=== PATIENT | male | born 1990 | race Caucasian/White ===

== ENCOUNTER 2017-05-17 11:18 | Emergency (ER) | payer MEDICAID, SELFPAY ==
[2017-05-17 11:19] VITALS: BP 140/90; PULSE 113; RESP 12; TEMP 36.4; BMI 25.0
[2017-05-17 11:35] VITALS: PULSE 102
--- NOTE | 2017-05-17 11:36 | ED.RN ---
PT DECLINES MAKING POLICE REPORT
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
[2017-05-17] MEDS: Diphth,Pertuss(Acell),Tet Vac 0.5 ML Vial IM (13:13)
[2017-05-17] MEDS: Naproxen 500 MG Tablet PO (13:14)
[2017-05-17] MEDS: Amox/Clavulanate 875 MG Tablet PO (13:14)
[2017-05-17 13:17] VITALS: PULSE 80; RESP 16; O2SAT 99
== END 2017-05-17 13:17 | disposition home or self-care (01) ==
LOC: ED 12:02
PROVIDERS: Emergency Provider Emergency Medicine
DX: S61.353A Open bite of left middle finger with damage to nail, initial encounter (principal); S60.132A Contusion of left middle finger with damage to nail, initial encounter; Z23 Encounter for immunization; Z72.0 Tobacco use; W50.3XXA Accidental bite by another person, initial encounter; Y93.89 Activity, other specified; Y92.89 Other specified places as the place of occurrence of the external cause; Y99.8 Other external cause status
CPT/HCPCS: 11740; 11730; 73140; 90471; 90715; 99283

== ENCOUNTER 2017-05-26 20:21 | Emergency (ER) | payer MEDICAID, SELFPAY ==
[2017-05-26 20:22] VITALS: BP 135/81; PULSE 119; RESP 15; TEMP 37.1; BMI 25.1
--- NOTE | 2017-05-26 20:43 | ED.DCSUM_ITS ---
- ER Visit Summary Date of Service: 05/26/17 Chief Complaint: Genital rash, dysuria History of Present Illness: The patient is a 26 M with no significant medical history presents to the emergency department with rash on his genitals. Patient states that he has had intercourse with a new partner twice over the past 3 weeks. He states that he developed a rash mostly in the pubic area but it is since spread to his penis. He describes some difficulty urinating because of it. He denies any discharge. He denies any back pain. The patient is currently on antibiotics for a finger infection. Physical Examination: Vital signs reviewed General: Well-nourished, well-developed Head: Normocephalic, atraumatic Eyes: Pupils equal and reactive, extraocular muscles intact Neck, supple, no lymphadenopathy Heart: Regular rate and rhythm Respiratory: No distress, clear bilaterally Abdomen: Soft, nontender, nondistended, no peritoneal signs Back: Nontender Exam: Patient does have a folliculitis pubic area. He does however have vesicles on the glans. There is no drainage. Testicles are normal. Extremities: Nontender, no edema, no cords Skin: Normal color no rash Neuro: Alert and oriented, no focal or lateralizing deficits Test Results: [] Emergency Department Course and Treatment: The patient does have evidence of vesicular eruption on his penis. My concern is for genital herpes. I did obtain a viral culture. The patient was also treated with Rocephin and azithromycin. He does have some with urination, but I do not feel that this represents an acute urinary tract infection. He has no flank pain. The patient will be started on Valtrex. He will be discharged home. Treatment Plan: [] Disposition: Charge Impression: 1. Genital herpes This note was generated with [employer] software. It may contain incorrect words, spelling, and punctuation that were not noted in review of the chart prior to signing ED Disposition - Plan for ED Patient: Disposition: Home or Assisted Living Chief Complaint: Complaint Instructions: ED STD Male Treated Prescriptions: Valacyclovir HCl [Valtrex] 1,000 mg PO TID #21 tab Referrals: Care Physician,No Primary [Primary Care Provider] -
[2017-05-26 20:55] LABS: Red Blood Cells-Urine 0 SEEN /hpf (0-5)
[2017-05-26 20:57] LABS: Color, Urine Yellow (Yellow); Glucose, Dipstick Normal (Normal); Ketone-Dipstick 5 mg/dl (Negative); Leukocyte Esterase-Dipstick 100 /ul (Negative); Nitrite-Dipstick Negative (Negative); Occult Blood-Urine Negative /ul (Negative); Protein-Dipstick 30 mg/dl (Negative); Urine Bilirubin Dipstick Negative (Negative); Urine Clarity Clear (Clear); Urine Urobilinogen 4 mg/dl (Normal)
[2017-05-26] MEDS: Acyclovir 800 MG Tablet PO (20:58)
[2017-05-26] MEDS: Azithromycin 250 MG Tablet 500 MG PO (20:58)
[2017-05-26] MEDS: Ceftriaxone 500 MG Vial 250 MG IM (20:59)
[2017-05-26 21:04] LABS: Bacteria 1+ /hpf (None Seen); Mucous, Urine 1+ /hpf (<or=2+); Squamous Epithelial Cells - UA 0-5 SEEN /hpf (0-5); White Blood Cells 5-10 SEEN /hpf (0-5)
[2017-05-26 22:28] VITALS: BP 131/68; PULSE 80; RESP 16; O2SAT 96
[2017-05-26 22:53] LABS: Chlamydia Trachomatis by PCR Negative (Negative); Neisserai gonorrhoeae by PCR Negative (Negative); Probe Check PASS; Sample Adequacy Control PASS; Specimen Processing Control PASS
== END 2017-05-26 22:29 | disposition home or self-care (01) ==
LOC: ED 20:47
PROVIDERS: Emergency Provider Emergency Medicine
DX: A60.01 Herpesviral infection of penis (principal); Z79.891 Long term (current) use of opiate analgesic; Z79.2 Long term (current) use of antibiotics
CPT/HCPCS: 81001; 87255; 87491; 87591; 96372; 99283

== ENCOUNTER → 2017-06-19 07:15 | Outpatient (CLI) | payer MEDICAID, SELFPAY ==
[2017-05-23 11:38] VITALS: BP 135/89
[2017-05-23 11:44] VITALS: BMI 25.0
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
== END ==
PROVIDERS: Visit Provider Surgery
DX: Z53.9 Procedure and treatment not carried out, unspecified reason (principal)
CPT/HCPCS: J0295

== ENCOUNTER 2017-08-07 12:23 | Emergency (ER) | payer MEDICAID, SELFPAY ==
[2017-08-07 12:24] VITALS: BP 148/102; PULSE 102; RESP 18; TEMP 36.3; O2SAT 99; BMI 25.8
--- NOTE | 2017-08-07 12:45 | ED.VISSUMM ---
- ER Visit Summary Date of Service: 08/07/17 Chief Complaint: Left groin lump and penile/scrotal lesions History of Present Illness: The patient is a 27 M who presents because of a lump left groin that he noted yesterday. He states the lump is painful. He denies nausea, vomiting diarrhea. He denies dysuria, frequency, urgency or hematuria. He has no history of being in a hot tub. He was checked for STD 1 month ago and all tests including herpes was negative. He states he has been scratching the lesions. He denies any fever, chills night sweats. Denies a traumatic fever, murmur, SPE or being immune suppressed. Please read written note for complete detail Physical Examination: Patient appears uncomfortable. Blood pressure elevated 140/102. Heart rate is 102. HEENT exam is unremarkable. Heart is regular. There is no rest or distress. Abdomen soft nontender. He has no inguinal lymphadenopathy. He is circumcised. No penile lesions or discharge noted. Testes descended bilaterally no testicular or epididymal tenderness. He does have a small reducible left inguinal hernia. He does have evidence of folliculitis as well as scrotal lesions with excoriation and mild infection. There is also evidence of rash on inner proximal right and left thigh. Test Results: None are indicated Emergency Department Course and Treatment: Keep appointment with PCP for referral to general surgeon and dicloxacillin for strep and staph coverage since there is no history of being in a hot tub. Treatment Plan: Outpatient follow-up and antibiotics Disposition: Discharged home Impression: 1. Reducible left inguinal hernia 2. Folliculitis with areas of excoriation and mild cellulitis This note was generated with [employer] dictation software. It may contain incorrect words, spelling, and punctuation that were not noted in review of the chart prior to signing ED Disposition - Plan for ED Patient: Disposition: Home or Assisted Living Chief Complaint: Male Pain/Injury Instructions: ED Hernia Inguinal, ED Folliculitis Prescriptions: Dicloxacillin Sodium 500 mg PO 4X/DAY #30 cap Referrals: Care Physician,No Primary [Primary Care Provider] -
--- NOTE | 2017-08-07 12:49 | ED.DCSUM_ITS ---
- ER Visit Summary Date of Service: 08/07/17 Chief Complaint: [] History of Present Illness: The patient is a 27 M [] Physical Examination: [] Test Results: [] Emergency Department Course and Treatment: [] Treatment Plan: [] Disposition: [] Impression: [] This note was generated with [employer] dictation software. It may contain incorrect words, spelling, and punctuation that were not noted in review of the chart prior to signing ED Disposition - Plan for ED Patient: Disposition: Home or Assisted Living Chief Complaint: Male Pain/Injury Instructions: ED Folliculitis, ED Hernia Inguinal Prescriptions: Dicloxacillin Sodium 500 mg PO 4X/DAY #30 cap Referrals: Care Physician,No Primary [Primary Care Provider] - Additional Instructions: Keep appointment with your doctors nurse practitioner scheduled for tomorrow. You may need a referral to a general surgeon.
[2017-08-07] MEDS: Naproxen 250 MG Tablet 500 MG PO (12:58)
[2017-08-07 13:00] VITALS: PULSE 95; RESP 16; O2SAT 98
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
== END 2017-08-07 13:01 | disposition home or self-care (01) ==
LOC: ED 12:52
PROVIDERS: Emergency Provider Emergency Medicine
DX: K40.90 Unilateral inguinal hernia, without obstruction or gangrene, not specified as recurrent (principal); L73.9 Follicular disorder, unspecified; N49.2 Inflammatory disorders of scrotum
CPT/HCPCS: 99283

== ENCOUNTER 2018-01-10 11:44 | Emergency (ER) | payer MEDICAID, SELFPAY ==
[2018-01-10 11:45] VITALS: BP 124/89; PULSE 99; RESP 18; TEMP 36.6; O2SAT 98; BMI 26.6
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
--- NOTE | 2018-01-10 12:10 | DCINST.ED_ITS ---
ED Disposition - Plan for ED Patient: Disposition: Home or Assisted Living Chief Complaint: Other, Pain/Inj Instructions: ED Chronic Pain Management Referrals: Arielle Lowry MD [STAFF PHYSICIAN] - As soon as possible Additional Instructions: Continue anti-inflammatory pain medications. Call and follow-up with Dr. Lowry the spray painting machine operator
== END 2018-01-10 12:23 | disposition home or self-care (01) ==
PROVIDERS: Emergency Provider Emergency Medicine; Family Provider Internal Medicine; PCP Internal Medicine
DX: M54.2 Cervicalgia (principal); G89.29 Other chronic pain; Z87.891 Personal history of nicotine dependence
CPT/HCPCS: 99282

== ENCOUNTER 2018-05-12 13:25 | Emergency (ER) | payer MEDICAID, SELFPAY ==
[2018-05-12 13:25] VITALS: BMI 25.0
[2018-05-12 13:26] VITALS: BP 149/96; PULSE 109; RESP 20; TEMP 37; O2SAT 89; O2SAT 93; BMI 30.6
--- NOTE | 2018-05-12 13:29 | RAD_ITS ---
STUDY: X-RAY CHEST REASON FOR EXAM: Male, 27 years old. Cough. TECHNIQUE: Single AP portable view of the chest. COMPARISON: None. FINDINGS: The lungs are clear and expanded. There is no demonstrated pleural abnormality. Normal size heart. Normal mediastinum and nenita. Normal visualized pulmonary arteries. Normal visualized aortic arch and descending thoracic aorta. Normal visualized thoracic spine. Normal visualized ribs, clavicles, and shoulders. There is no demonstrated abnormality of the visualized soft tissue structures of the upper abdomen. RAD/Chest 1 View (Portable) IMPRESSION: Normal x-ray examination of the chest. Electronically Signed: Tristan Wood DO at 14:32 EST Tel [phone], Service support ,
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
[2018-05-12] MEDS: Lidocaine/Epi/Tetracaine 50 ML 1 APPLIC TOPICAL (13:45)
[2018-05-12] MEDS: Ondansetron 4 MG/2 ML Vial IV (15:04)
[2018-05-12] MEDS: Acetaminophen 500 MG Tablet 1000 MG PO (15:18)
[2018-05-12 15:21] VITALS: BP 115/71; PULSE 82; RESP 16; O2SAT 93
[2018-05-12 16:30] VITALS: RESP 18
--- NOTE | 2018-05-12 16:34 | ED.RN ---
PT REFUSED TO GIVE A URINE SAMPLE OR ALLOW MONITOR TO BE PLACED.
== END 2018-05-12 16:38 | disposition home or self-care (01) ==
PROVIDERS: Emergency Provider Emergency Medicine
DX: T40.601A Poisoning by unspecified narcotics, accidental (unintentional), initial encounter (principal); S01.81XA Laceration without foreign body of other part of head, initial encounter; Z72.0 Tobacco use; W26.9XXA Contact with unspecified sharp object(s), initial encounter; Y93.89 Activity, other specified; Y92.89 Other specified places as the place of occurrence of the external cause; Y99.8 Other external cause status
CPT/HCPCS: 12011; 71045; 96374; 99284; J7030; J2405

== ENCOUNTER → 2018-08-05 | Outpatient (CLI) | payer MEDICAID, SELFPAY ==
--- NOTE | 2018-08-05 12:45 | SEP_PTH ---
PATIENT: JORI FERREIRA [facility][id number] AGE/SX: 28/M ROOM: RE08/05/[address]: Dr. Chip Hernández MD : 1990 BED: DIS: 08/05/2018 SPEC #: [id number] RECD: 08/05/18 15:09 STATUS: SHANIKA REBreann #: [id number] CINDY: 08/05/18 12:[address]: Chip Hernández DEPT: SURGICAL PATHOLOGY RECD BY: Eloy Maxwell ENTERED: 08/06/18 11:09 SP TYPE: SEPTUM OTHR DR: No Primary Care Phys [facility] Tissues: A - Nasal septum, NOS B - Ethmoid sinus, NOS Procedures: Decalcification bone/plaque Surgery Specimen Level III HEADER OPERATION: Septoplasty, turbinate resection with submucosal approach PRE-OP DIAGNOSIS: Nasal congestion, hypertrophy of nasal turbinates, deviated nasal septum TISSUE SUBMITTED: A. Septum, B. Turbinate contents MICROSCOPIC DIAGNOSIS A. Septum: Fragments of cartilage and bone, clinically deviated nasal septum. B. Turbinate contents: No tissue is identified. See comment. ISABELL:arminda 08/09/18 COMMENT B. Clinical correlation is necessary. MICROSCOPIC DESCRIPTION Slides are reviewed. GROSS DESCRIPTION A - Received in fixative is one container labeled with the patient's name and designated septum. The specimen consists of multiple fragments of cartilage and bone that in aggregate measure 3 x 2.5 x 0.3 cm. The entire specimen is submitted in one cassette after decalcification. B - Received in fixative is one container labeled with the patient's name and designated turbinate contents. The entire specimen consists of bloody fluid. No obvious tissue is identified. The specimen is submitted for cell block preparation. / ISABELL:arminda 08/06/18 TC: 5 CPT: 38248 x2, 75204
== END | disposition home or self-care (01) ==
LOC: LABSPEC 15:18
PROVIDERS: Referring Provider Otolaryngology; Visit Provider Otolaryngology
DX: R09.81 Nasal congestion (principal); J34.3 Hypertrophy of nasal turbinates; J34.2 Deviated nasal septum
CPT/HCPCS: 88304; 88305; 88311

== ENCOUNTER 2018-10-16 18:07 | Emergency (ER) | payer MEDICAID, SELFPAY ==
[2018-10-16 18:07] VITALS: BP 136/91; PULSE 80; RESP 16; TEMP 36.6; O2SAT 99; BMI 27.1
[2018-10-16] MEDS: Ondansetron 4 MG/2 ML Vial IV (18:39)
[2018-10-16] MEDS: 0.9% Normal Saline 1,000 ML 1000 ML IV (18:39)
--- NOTE | 2018-10-16 18:43 | ED.VIS.GEN ---
History of Present Illness Chief Complaint: Nausea/Vomiting Narrative: 28-year-old male with a history of IBS presents with what he does not address his typical IBS flareup. He states that he has had this happen multiple times in the past. He denies abdominal pain, just occasional cramps that resolved with vomiting. He has been unable to keep fluids down all day. He is concerned that he is becoming dehydrated. He denies fever, sick contacts, or unusual food intake. Current severity is moderate. Past Medical History - Allergies and Home Meds Allergies/Adverse Reactions: Allergies clindamycin Allergy (Verified 10/16/18 18:08) Unknown gentamicin [Gentamicin] Allergy (Verified 10/16/18 18:08) Unknown Primary Care Physician: Misty Mendoza MD [Primary Care Provider] - Prior records reviewed: Yes Past Medical History: - - IBS Smoking Status: Former smoker Review of Systems General: Denies: Chills, Fever, Sweats Eyes: Denies: Visual changes - bilaterally, Diplopia ENT: Denies: Rhinorrhea, Sore throat Cardiovascular: Denies: Chest pain, Palpitations Respiratory: Denies: Dyspnea, Cough, Dyspnea on exertion Gastrointestinal: Reports: Nausea, Vomiting. Denies: Abdominal pain, Diarrhea, Constipation, Melena, Hematochezia Genitourinary: Denies: Dysuria, Hematuria, Frequency Musculoskeletal: Denies: Back pain, Extremity Pain Skin: Denies: Rash, Wounds Neurological: Denies: Headache, Weakness, Numbness Physical Exam Vital Signs/Narrative: Vital Signs Temp Pulse Resp BP Pulse Ox 10/16/18 18:07 97.9 F 80 16 136/91 H 99 General: Well nourished, Well developed Head: Normocephalic, Atraumatic Eyes: Perrl, EOMI ENT: No rhinorrhea, Dry mucous membranes Neck: Supple, Nontender Cardiovascular: Regular rate, Regular rhythm, No murmurs Respiratory: No distress, CTA bilaterally, Chest nontender Abdomen: Soft, Nontender, Nondistended, Normal bowel sounds Back: Nontender, Normal Inspection Extremities: Nontender, No edema Skin: Normal color, No rash Neurological: Alert, Oriented x3, Cranial nerves II-XII grossly intact, Normal Strength, Normal Sensation Psychological: Normal affect, Normal Mood Diagnostic/Tx/Re-eval - Medical Decision Making Labs are fairly unremarkable. He does have ketones in his urine. He was given 2 L of fluid antiemetics and feels completely better. His abdomen is soft and nontender. He denies abdominal pain. We discussed abdominal imaging but he is certain that this is the same as his recurrent pain in the past. He feels well and would like to be discharged home. He is planning to follow-up with a power generation equipment repairer in [place]. He assures me that he will return here if he is any worse. He was discharged in stable condition. ED Disposition - Plan for ED Patient: Disposition: Home or Assisted Living Diagnosis: Nausea and vomiting, Dehydration Instructions: VOMITING AND DIARRHEA, Nonspecific (Adult) Prescriptions: proMETHazine suppository [Phenergan] 25 mg RECTAL Q6H PRN PRN #20 suppos. PRN Reason: Nausea Referrals: Misty Mendoza MD [Primary Care Provider] -
[2018-10-16 19:16] LABS: Bacteria 0 SEEN /hpf (None Seen); Mucous, Urine 0 SEEN /hpf (<or=2+)
[2018-10-16 19:24] LABS: AST(SGOT) 21 U/L (15-37); Alanine Aminotransfer ALT/SGPT 42 U/L (16-61); Albumin, Serum 4.9 g/dL (3.2-5.0); Alkaline Phosphatase 68 U/L (45-117); Anion Gap 9 (5-15); BUN 14 mg/dL (7-18); Bilirubin, Direct 0.21 mg/dL (0.00-0.30); Calcium,Total 10.2 mg/dL (8.5-10.1); Chloride 103 mmol/L (98-107); Creatinine, Serum 1.17 mg/dL (0.70-1.30); EST Glomerular Filtration Rate 79 mL/min (>60); Est Glom Filt Rate - Afr Amer 96 mL/min (>60); Estimated Creatinine Clearance 97.92 ml/min; Globulin 3.7 g/dL (2.2-4.2); Glucose 107 mg/dL (74-106); Lipase 117 U/L (73-393); Potassium 3.6 mmol/L (3.5-5.1); Protein, Total 8.6 g/dL (6.4-8.2); Sodium Level 137 mmol/L (136-145)
[2018-10-16 19:30] LABS: Color, Urine Yellow (Yellow); Glucose, Dipstick Normal (Normal); Leukocyte Esterase-Dipstick 25 /ul (Negative); Nitrite-Dipstick Negative (Negative); Occult Blood-Urine 10 /ul (Negative); Protein-Dipstick 30 mg/dl (Negative); Urine Bilirubin Dipstick Negative (Negative); Urine Clarity Sl. Cloudy (Clear); Urine Urobilinogen 1 mg/dl (Normal)
[2018-10-16 19:34] LABS: Ketone-Dipstick 150 mg/dl (Negative)
[2018-10-16 19:43] LABS: Red Blood Cells-Urine 0-5 SEEN /hpf (0-5); Squamous Epithelial Cells - UA 0-5 SEEN /hpf (0-5); White Blood Cells 0-5 SEEN /hpf (0-5)
[2018-10-16 20:13] LABS: Absolute Lymphocyte Count 1.14 X10^3/ul (0.83-4.51); Absolute Neutrophil Count 9.5 X10^3/uL (2.0-7.7); Basophil# 0.01 X10^3/uL; Basophil% 0.1 % (0-1); Hematocrit 49.5 % (40-54); Hemoglobin 17.6 g/dl (13.0-16.5); Lymphocyte # 1.14 X10^3/ul (4.0); Lymphocyte % 10.4 % (19-41); Mean Corp Hgb Conc 35.6 g/gl (32-36); Mean Corpuscular Hgb 31.1 pg (27.0-32.0); Mean Corpuscular Volume 87.5 fL (80-94); Mean Platelet Vol. 10.5 fl (6.2-12.0); Monocyte# 0.25 X10^3/uL; Monocyte% 2.3 % (0-10); Neutrophil # 9.54 X10^3/uL (2.7-7.7); Platelet Count 200 K/mm3 (150-450); RBC Distribution Width CV 12.1 % (11.6-14.6); RBC Distribution Width SD 38.8 fl (35.1-43.9); Red Blood Count 5.66 M/mm3 (4.6-6.2)
[2018-10-16 20:14] LABS: POSITIVE COUNT NO; POSITIVE DIFFERENTIAL NO; POSITIVE MORPHOLOGY NO
[2018-10-16] MEDS: 0.9% Normal Saline 1,000 ML 999 ML IV (20:38)
[2018-10-16] MEDS: proMETHazine 25 MG/ML Syringe 12.5 MG IV (20:38)
[2018-10-16 21:53] VITALS: BP 127/60; PULSE 96; RESP 18; O2SAT 97
== END 2018-10-16 21:53 | disposition home or self-care (01) ==
PROVIDERS: Emergency Provider Emergency Medicine; Family Provider Internal Medicine; PCP Internal Medicine
DX: E86.0 Dehydration (principal); R11.2 Nausea with vomiting, unspecified; Z87.891 Personal history of nicotine dependence
CPT/HCPCS: 80048; 80076; 81001; 83690; 85025; 96361; 96374; 96375; 99283; J7030; J2405

== ENCOUNTER 2018-12-27 14:11 | Emergency (ER) | payer MEDICAID, SELFPAY ==
[2018-12-27 14:13] VITALS: BP 137/96; PULSE 61; RESP 17; TEMP 36.6; O2SAT 99; BMI 27.0
--- NOTE | 2018-12-27 14:40 | CT_ITS ---
STUDY: CT ABDOMEN AND PELVIS WITH CONTRAST REASON FOR EXAM: Male, 28 years old. RADIATION DOSAGE (If Supplied By Facility): CTDIvol = ( 8.84 ) mGy, DLP = ( 448.18 ) mGycm TECHNIQUE: Transaxial images were obtained from the dome of the diaphragm to the symphysis pubis with oral contrast. 15ML Oral Gastrografin was administered. Sagittal and coronal images were reconstructed. Individualized dose optimization techniques were used for this CT. COMPARISON: 06/28/2016 FINDINGS: The visualized lung bases are unremarkable. The visualized portions of the heart are within normal limits. Normal liver. Normal gallbladder and extrahepatic biliary system. There is mild splenomegaly. Normal pancreas. Normal bilateral adrenal glands. Normal right kidney. Normal left kidney. No definite renal or ureteral stones are seen. There is no hydronephrosis on either side. Normal visualized stomach. Normal small intestine. Normal colon. The appendix is visualized and appears normal. Normal abdominal aorta. Normal inferior vena cava. Normal retroperitoneum. Normal urinary bladder. Normal abdominal wall. Normal osseous structures. CT/Abdomen/Pel W ORAL Cont Only IMPRESSION: Normal enhanced CT of the abdomen and pelvis. Electronically Signed: Roger Montgomery MD at 16:38 EDT , Service support ,
--- NOTE | 2018-12-27 14:44 | ED.VIS.GEN ---
History of Present Illness Chief Complaint: Abd Pain Informant: Patient Onset: Yesterday Current Severity: Moderate Maximum Severity: Moderate Narrative: Patient presents with left lower quadrant abdominal pain since yesterday. Has some congestion no chest pain or shortness of breath. He has no diarrhea constipation. He did have some constipation. Pain is mild to moderate. Achy. He tells me it has been diagnosed as irritable bowel syndrome in the past. He has not seen a GI doctor or followed up. He has not had a colonoscopy. Past Medical History - Allergies and Home Meds Allergies/Adverse Reactions: Allergies clindamycin Allergy (Verified 12/27/18 14:13) Unknown gentamicin [Gentamicin] Allergy (Verified 12/27/18 14:13) Unknown Primary Care Physician: Misty Mendoza MD [Primary Care Provider] - Past Medical History: - - Anxiety, possibility of irritable bowel syndrome Smoking Status: Former smoker Review of Systems All systems negative except as indicated General: Reports: Sweats. Denies: Chills Eyes: Denies: Visual changes - bilaterally Cardiovascular: Denies: Heart racing Respiratory: Denies: Dyspnea Gastrointestinal: Reports: Abdominal pain, Constipation Musculoskeletal: Denies: Back pain Neurological: Denies: Headache Physical Exam Vital Signs/Narrative: Vital Signs Temp Pulse Resp BP Pulse Ox 12/27/18 14:13 97.9 F 61 17 137/96 H 99 General: Well nourished, Well developed Eyes: Perrl ENT: Moist mucous membranes Cardiovascular: Regular rate Respiratory: No distress Abdomen: Soft, Tender - Left lower quadrant tenderness without any guarding or rebound Back: Nontender, Normal Inspection Skin: Normal color Psychological: Normal affect Diagnostic/Tx/Re-eval - Medical Decision Making Patient presents with chronic recurrent abdominal pain. He has a normal CT and work-up. He received antiemetics. I will discharge him with GI follow-up since this recurs often. ED Disposition - Plan for ED Patient: Disposition: Home or Assisted Living Diagnosis: Abdominal pain Instructions: ABDOMINAL PAIN, Unkown Cause, (Male) Prescriptions: Dicyclomine HCl [Bentyl] 20 mg PO TIDAC #20 cap Prescription Printed Ondansetron [Zofran Odt] 4 mg PO Q8H PRN PRN #10 tab PRN Reason: Nausea Prescription Printed Referrals: Rojas Valderrama MD [NON-STAFF] - 3-5 Days
[2018-12-27 15:01] LABS: Absolute Lymphocyte Count 1.01 X10^3/uL (0.83-4.51); Absolute Neutrophil Count 7.8 X10^3/uL (2.0-7.7); Basophil# 0.01 X10^3/uL; Basophil% 0.1 % (0-1); Eosinophil# 0.01 X10^3/uL; Eosinophils% 0.1 % (0-5); Hemoglobin 15.8 g/dL (13.0-16.5); Lymphocyte # 1.01 X10^3/ul (4.0); Lymphocyte % 10.9 % (19-41); Mean Corp Hgb Conc 34.3 g/dL (32-36); Mean Corpuscular Hgb 31.1 pg (27.0-32.0); Mean Corpuscular Volume 90.6 fL (80-94); Mean Platelet Vol. 9.7 fl (6.2-12.0); Monocyte# 0.43 X10^3/uL; Monocyte% 4.7 % (0-10); NRBC Flagged by Analyzer 0 % (0-5); Neutrophil # 7.75 X10^3/uL (2.7-7.7); Neutrophil % 83.9 % (47-70); Platelet Count 168 K/mm3 (150-450); RBC Distribution Width CV 11.7 % (11.6-14.6); RBC Distribution Width SD 38.8 fl (35.1-43.9); Red Blood Count 5.08 M/mm3 (4.6-6.2); White Blood Count 9.2 K/mm3 (4.4-11.0)
[2018-12-27] MEDS: Ondansetron 4 MG/2 ML Vial IV (15:05)
[2018-12-27] MEDS: 0.9% Normal Saline 1,000 ML 1000 ML IV (15:05)
[2018-12-27 15:21] LABS: ALB/GLOB Ratio 1.3 RATIO (0.9-2.4); AST(SGOT) 20 U/L (15-37); Alanine Aminotransfer ALT/SGPT 43 U/L (16-61); Albumin, Serum 4.2 g/dL (3.2-5.0); Alkaline Phosphatase 58 U/L (45-117); Anion Gap 1 (5-15); BUN 12 mg/dL (7-18); BUN/Creat Ratio 12.4 RATIO (10-20); Calcium,Total 9.3 mg/dL (8.5-10.1); Chloride 106 mmol/L (98-107); Creatinine, Serum 0.97 mg/dL (0.70-1.30); EST Glomerular Filtration Rate 99 mL/min (>60); Est Glom Filt Rate - Afr Amer 120 mL/min (>60); Estimated Creatinine Clearance 114.39 ml/min; Globulin 3.3 g/dL (2.2-4.2); Glucose 97 mg/dL (74-106); Lipase 361 U/L (73-393); Potassium 3.7 mmol/L (3.5-5.1); Protein, Total 7.5 g/dL (6.4-8.2); Sodium Level 139 mmol/L (136-145)
[2018-12-27 17:49] VITALS: BP 118/77; PULSE 62; RESP 15; O2SAT 98
== END 2018-12-27 17:50 | disposition home or self-care (01) ==
PROVIDERS: Emergency Provider Emergency Medicine; Family Provider Internal Medicine; PCP Internal Medicine
DX: R10.32 Left lower quadrant pain (principal); Z87.891 Personal history of nicotine dependence
CPT/HCPCS: 74176; 80053; 83690; 85025; 96361; 96374; 99283; J7030; A4216; J2405

== ENCOUNTER 2019-05-27 05:30 | Emergency (ER) | payer MEDICAID, SELFPAY ==
[2019-05-27 05:31] VITALS: BP 149/101; PULSE 96; RESP 16; TEMP 36.5; O2SAT 98; BMI 26.7
--- NOTE | 2019-05-27 05:41 | ED.DCSUM_ITS ---
History of Present Illness Chief Complaint: Dental Narrative: Patient is a 28-year-old male who presents with dental pain. Patient has been told that he does have decay of his wisdom teeth and that they would need removed but has not been able to have this done yet. Over the last 2 days he has developed severe pain in his left upper wisdom tooth. No fevers. No facial swelling. No nausea or vomiting. He has been trying 800 mg ibuprofen with little relief. Past Medical History - Allergies and Home Meds Allergies/Adverse Reactions: Allergies clindamycin Allergy (Verified 05/27/19 05:37) Unknown gentamicin [Gentamicin] Allergy (Verified 05/27/19 05:37) Unknown Primary Care Physician: Misty Mendoza MD [Primary Care Provider] - Past Medical History: None Smoking Status: Current every day smoker Review of Systems All systems negative except as indicated General: Denies: Fever ENT: Reports: - - Dental pain Cardiovascular: Denies: Chest pain Respiratory: Denies: Dyspnea Gastrointestinal: Denies: Vomiting Musculoskeletal: Denies: Myalgias, Arthralgias Skin: Denies: Rash Neurological: Denies: Headache Physical Exam Vital Signs/Narrative: Vital Signs Temp Pulse Resp BP Pulse Ox 05/27/19 05:31 97.7 F L 96 16 149/101 H 98 Inital Vital Signs reviewed: Yes General: Well nourished, Well developed Head: Normocephalic Eyes: EOMI ENT: - - I do not appreciate any focal dental abscess amenable to incision and drainage, no facial swelling, patient does have tenderness on percussion of the left third maxillary molar and does have decay of this tooth Cardiovascular: Regular rate, Regular rhythm Respiratory: No distress Skin: Normal color Neurological: Alert Psychological: Normal affect Diagnostic/Tx/Re-eval - Medical Decision Making Patient provided with a prescription for penicillin as a suspect early abscess. He was also given a short course of Artesia for acute pain control. I advised that he follow-up with dentistry and he was discharged home. ED Disposition - Plan for ED Patient: Disposition: Home or Assisted Living Diagnosis: Pain, dental Instructions: Dental Pain Prescriptions: Hydrocodone Bitart/Apap 5-325 [Artesia 5MG-325MG] 1 tab PO Q6H PRN PRN 3 Days #10 tab PRN Reason: Pain Prescription Printed Penicillin V Potassium 500 mg PO 4X/DAY #40 tab Prescription Printed Referrals: Misty Mendoza MD [Primary Care Provider] -
[2019-05-27 06:10] VITALS: PULSE 96; RESP 17; O2SAT 98
== END 2019-05-27 06:11 | disposition home or self-care (01) ==
LOC: ED 05:50
PROVIDERS: Emergency Provider Emergency Medicine; PCP Internal Medicine
DX: K08.89 Other specified disorders of teeth and supporting structures (principal); F17.200 Nicotine dependence, unspecified, uncomplicated
CPT/HCPCS: 99282

== ENCOUNTER 2019-08-01 14:23 | Emergency (ER) | payer MEDICAID, SELFPAY ==
[2019-08-01 14:24] VITALS: BP 124/65; PULSE 56; RESP 18; TEMP 36.8; O2SAT 97; BMI 24.3
--- NOTE | 2019-08-01 14:51 | ED.VISSUMM ---
- ER Visit Summary Date of Service: 08/01/19 Chief Complaint: Nausea, vomiting and diarrhea History of Present Illness: The patient is a 29 M she is irritable bowel syndrome. No prior abdominal surgeries. Patient had episodes like this before where he has nausea, vomiting diarrhea. Said this episode started this morning. He denies any hematemesis or melena. He denies any history of cyclic vomiting. He denies any dysuria or fever. The abdominal pain he is having is cramping. Nonlocalizing. Physical Examination: Young male no acute distress vital signs stable afebrile. Does not look septic or toxic. H EENT exam unremarkable. Mildly dry mucous members. Neck nontender no lymphadenopathy. Lungs clear to auscultation bilaterally. Heart regular rhythm no murmur. Abdomen is soft and nontender. Normal bowel sounds no peritoneal signs. No signs of obstruction. Right upper and right lower quadrants are both unremarkable. Normal bowel sounds. Moving all 4 extremities. Neurologically awake alert no focal deficits. Test Results: None Emergency Department Course and Treatment: Patient treated for nausea vomiting. IV fluids for mild dehydration. Phenergan for nausea. Reassessed doing well. Positive p.o. fluids. Discharge to home. Treatment Plan: Zofran as needed for nausea. Fluids and rest. Follow-up. Disposition: Discharge Impression: Acute nausea, vomiting and diarrhea History of irritable bowel This note was generated with [employer] dictation software. It may contain incorrect words, spelling, and punctuation that were not noted in review of the chart prior to signing ED Disposition - Plan for ED Patient: Referrals: Misty Mendoza MD [Primary Care Provider] -
--- NOTE | 2019-08-01 14:57 | ED.DEP ---
ED Disposition - Plan for ED Patient: Disposition: Home or Assisted Living Instructions: ED Nausea Vomiting Adult Prescriptions: proMETHazine tablet [Phenergan tablet] 25 mg PO Q4H PRN PRN #10 tab PRN Reason: Nausea Prescription Printed Referrals: Misty Mendoza MD [Primary Care Provider] - 3-5 Days if not improving Additional Instructions: Plenty of fluids and rest. Zofran as needed for nausea. Follow-up if not improving or return if worse.
[2019-08-01] MEDS: proMETHazine 25 MG/ML Syringe 12.5 MG IV (15:06)
[2019-08-01] MEDS: 0.9% Normal Saline 1,000 ML 1000 ML IV (15:06)
== END 2019-08-01 16:03 | disposition home or self-care (01) ==
LOC: ED 15:04
PROVIDERS: Emergency Provider Emergency Medicine; PCP Internal Medicine
DX: R11.2 Nausea with vomiting, unspecified (principal); K58.0 Irritable bowel syndrome with diarrhea; Z72.0 Tobacco use
CPT/HCPCS: 96361; 96374; 99283; J7030

== ENCOUNTER 2019-08-03 13:20 | Emergency (ER) | payer MEDICAID, SELFPAY ==
[2019-08-03 13:22] VITALS: BP 117/86; PULSE 65; RESP 18; TEMP 36.6; BMI 24.7
--- NOTE | 2019-08-03 13:39 | ED.VIS.GI ---
History of Present Illness Informant: Patient - Abdominal Pain/Flank Pain Onset: Yesterday Context: Gradual Onset Timing: Continuous Quality: Burning Location: Epigastric Current Severity: Severe Maximum Severity: Severe Worsened by: Food Relieved by: Remaining Still - Nausea/Vomiting/Emesis GI Symptom: Nausea, Vomiting Onset: Yesterday Severity: Severe - Diarrhea/Melena/Hematochezia GI Symptom: Negative for: Diarrhea, Melena, Hematochezia Associated Symptoms: Negative for: Dysuria, Frequency, Hematuria, Urgency Narrative: 29-year-old male with a history of IBS presents to the emergency department with abdominal pain nausea and vomiting. He was seen here 2 days ago for similar symptoms. He states that he felt better upon discharge but symptoms returned yesterday and he has progressively worsened since then. He is having difficulty keeping food and fluids down. He is having some mild epigastric burning pain. No diarrhea. No melena no hematochezia or coffee-ground emesis or hematemesis. No fevers. No upper respiratory symptoms. No recent travel. No recent antibiotic use. No sick contacts. He is not on any daily medications. Prior similar symptoms: Yes Recent Illness/Hospitalization: No <Kadeem Bolanos - Last Filed: 08/03/19 15:09> <Yan Ch - Last Filed: 08/03/19 16:00> Chief Complaint: Nausea/Vomiting/Diarrhea Past Medical History Prior records reviewed: Yes Past Medical History: - - IBS Surgical History: no surgical history Smoking Status: Current every day smoker Alcohol: Occasional Drugs: None <Kadeem Bolanos - Last Filed: 08/03/19 15:09> <Yan Ch - Last Filed: 08/03/19 16:00> - Allergies and Home Meds Allergies/Adverse Reactions: Allergies clindamycin Allergy (Verified 08/01/19 14:25) Unknown gentamicin [Gentamicin] Allergy (Verified 08/01/19 14:25) Unknown Primary Care Physician: Misty Mendoza MD [Primary Care Provider] - Review of Systems All systems negative except as indicated General: Denies: Chills, Fever, Sweats Eyes: Denies: Visual changes - bilaterally, Blurred Vision - bilaterally, Diplopia ENT: Denies: Bilateral ear pain, Rhinorrhea, Sore throat Cardiovascular: Denies: Chest pain, Palpitations, Heart racing Respiratory: Denies: Dyspnea, Cough, Sputum Gastrointestinal: Reports: Abdominal pain, Nausea, Vomiting. Denies: Diarrhea, Constipation, Melena, Hematochezia Genitourinary: Denies: Dysuria, Hematuria, Frequency Musculoskeletal: Denies: Myalgias, Arthralgias, Neck pain, Back pain Skin: Denies: Rash, Abscess, Abrasions, Wounds Neurological: Denies: Headache, Weakness, Parasthesia, Numbness Endocrine: Denies: Polyuria, Polydipsia <Kadeem Bolanos - Last Filed: 08/03/19 15:09> Physical Exam Vital Signs/Narrative: Vital Signs Temp Pulse Resp BP 08/03/19 13:22 97.8 F 65 18 117/86 H Inital Vital Signs reviewed: Yes General: Well nourished, Well developed, No Acute Distress Head: Normocephalic, Atraumatic Eyes: Perrl, EOMI ENT: Moist mucous membranes Neck: Supple, Nontender, No lymphadenopathy, No JVD Cardiovascular: Regular rate, Regular rhythm, No murmurs Respiratory: No distress, CTA bilaterally, Chest nontender Abdomen: Soft, Nontender, Nondistended, Normal bowel sounds, No masses Back: Nontender, Normal Inspection Extremities: Nontender, No edema Skin: Normal color, No rash Neurological: Alert, Oriented x3 Psychological: Normal affect, Normal Mood <Kadeem Bolanos - Last Filed: 08/03/19 15:09> Vital Signs/Narrative: Vital Signs Temp Pulse Resp BP 08/03/19 13:22 97.8 F 65 18 117/86 H <Yan Ch - Last Filed: 08/03/19 16:00> Diagnostic/Tx/Re-eval - Medical Decision Making Reviewed patient's work-up from 2 days ago which was unremarkable. We repeated labs. White count is normal and the rest of his labs are unremarkable. On serial repeat abdominal exams his abdomen remains soft and nontender. He was given a total of 2 L of IV fluids. He was initially given a dose of Phenergan followed by dose of Zofran. He is now tolerating by mouth. He is well-appearing. Vital signs are stable. He will be discharged with Zofran. He was given a prescription for Phenergan 2 days ago. He was given referral to a primary care as well as a GI doctor. Laboratory Results 08/03/19 08/03/19 13:50 13:50 WBC 9.2 RBC 5.07 Hgb 16.0 Hct 46.6 MCV 91.9 MCH 31.6 MCHC 34.3 RDW Std Deviation 40.0 RDW Coeff of Olayinka 11.9 Plt Count 169 MPV 9.9 Immature Gran % (Auto) 0.200 Neut % (Auto) 80.2 H Lymph % (Auto) 14.4 L Alfalfa % (Auto) 4.6 Eos % (Auto) 0.3 Baso % (Auto) 0.3 Absolute Neuts (auto) 7.3 Absolute Lymphs (auto) 1.32 Nucleated RBC % 0 Sodium 141 Potassium 3.8 Chloride 106 Carbon Dioxide 27.0 Anion Gap 8 BUN 8 Creatinine 1.05 Estim Creat Clear Calc 108.15 Est GFR (MDRD) Af Amer 108 Est GFR (MDRD) Non-Af 89 BUN/Creatinine Ratio 7.6 L Glucose 104 Calcium 9.4 Total Bilirubin 0.70 AST 19 ALT 36 Alkaline Phosphatase 60 Total Protein 7.8 Albumin 4.3 Globulin 3.5 Albumin/Globulin Ratio 1.2 Lipase 208 <Kadeem Bolanos - Last Filed: 08/03/19 15:09> - Medical Decision Making Patient was seen with me. I did a [id number] evaluation with the patient. Patient presents with nausea and vomiting. Patient states he has a history of similar episodes. Patient states she has never seen a agility instructor for this. Patient denies any hematemesis or coffee-ground emesis. Patient does admit to some diarrhea. Patient denies any melena or hematochezia. Vital signs are stable. Patient is afebrile. Patient is in no acute distress. Oral mucosa is pink and moist. Neck is supple. Trachea is midline. There is no JVD. Heart was regular rate and rhythm. Lungs are clear and equal bilateral. Abdomen is soft. Bowel sounds are normal. There is mild diffuse tenderness. There is no rebound or guarding noted. Cranial nerves II through XII are intact. There are no focal motor or sensory deficits. CBC and comprehensive metabolic profile were within normal limits. Lipase was normal. Patient was given IV fluids, Phenergan, and Zofran. Patient was feeling better on reevaluation. Patient was instructed to follow-up with his primary care physician in 5 to 7 days. Patient was advised that he may need to see a agility instructor for further evaluation. Patient understood and was agreeable with the plan. All questions were answered. <Yan Ch - Last Filed: 08/03/19 16:00> ED Disposition <Kadeem Bolanos - Last Filed: 08/03/19 15:09> <Yan Ch - Last Filed: 08/03/19 16:00> - Plan for ED Patient: Disposition: Home or Assisted Living Diagnosis: Nausea and vomiting, Abdominal pain, IBS (irritable bowel syndrome) Instructions: ED Diet for Vomiting or Diarrhea Adult, ED Vomiting and Diarrhea Nonspecific Adult Prescriptions: Famotidine [Pepcid] 20 mg PO BID #28 tab Prescription Printed Ondansetron [Zofran Odt] 4 mg PO Q8H PRN PRN #10 tab PRN Reason: Nausea Prescription Printed Referrals: Misty Mendoza MD [Primary Care Provider] -
[2019-08-03] MEDS: 0.9% Normal Saline 1,000 ML 1000 ML IV (14:02)
[2019-08-03] MEDS: proMETHazine 25 MG/ML Syringe 12.5 MG IV (14:03)
[2019-08-03 14:11] VITALS: O2SAT 96
[2019-08-03 14:18] LABS: ALB/GLOB Ratio 1.2 RATIO (0.9-2.4); AST(SGOT) 19 U/L (15-37); Alanine Aminotransfer ALT/SGPT 36 U/L (16-61); Albumin, Serum 4.3 g/dL (3.2-5.0); Alkaline Phosphatase 60 U/L (45-117); Anion Gap 8 (5-15); BUN 8 mg/dL (7-18); BUN/Creat Ratio 7.6 RATIO (10-20); Calcium,Total 9.4 mg/dL (8.5-10.1); Chloride 106 mmol/L (98-107); Creatinine, Serum 1.05 mg/dL (0.70-1.30); EST Glomerular Filtration Rate 89 mL/min (>60); Est Glom Filt Rate - Afr Amer 108 mL/min (>60); Estimated Creatinine Clearance 108.15 ml/min; Globulin 3.5 g/dL (2.2-4.2); Glucose 104 mg/dL (74-106); Lipase 208 U/L (73-393); Potassium 3.8 mmol/L (3.5-5.1); Protein, Total 7.8 g/dL (6.4-8.2); Sodium Level 141 mmol/L (136-145)
[2019-08-03 14:20] LABS: Absolute Lymphocyte Count 1.32 X10^3/uL (0.83-4.51); Absolute Neutrophil Count 7.3 X10^3/uL (2.0-7.7); Basophil# 0.03 X10^3/uL; Basophil% 0.3 % (0-1); Eosinophil# 0.03 X10^3/uL; Eosinophils% 0.3 % (0-5); Hematocrit 46.6 % (40-54); Lymphocyte # 1.32 X10^3/ul (4.0); Lymphocyte % 14.4 % (19-41); Mean Corp Hgb Conc 34.3 g/dL (32-36); Mean Corpuscular Hgb 31.6 pg (27.0-32.0); Mean Corpuscular Volume 91.9 fL (80-94); Mean Platelet Vol. 9.9 fl (6.2-12.0); Monocyte# 0.42 X10^3/uL; Monocyte% 4.6 % (0-10); NRBC Flagged by Analyzer 0 % (0-5); Neutrophil # 7.33 X10^3/uL (2.7-7.7); Neutrophil % 80.2 % (47-70); Platelet Count 169 K/mm3 (150-450); RBC Distribution Width CV 11.9 % (11.6-14.6); Red Blood Count 5.07 M/mm3 (4.6-6.2); White Blood Count 9.2 K/mm3 (4.4-11.0)
[2019-08-03] MEDS: 0.9% Normal Saline 1,000 ML 999 ML IV (14:50)
[2019-08-03] MEDS: Ondansetron 4 MG/2 ML Vial IV (14:58)
[2019-08-03 15:52] VITALS: BP 135/82; PULSE 69; RESP 18; O2SAT 98
== END 2019-08-03 16:04 | disposition home or self-care (01) ==
PROVIDERS: Emergency Provider Physician Assistant Medical; PCP Internal Medicine
DX: K58.9 Irritable bowel syndrome, unspecified (principal); R10.84 Generalized abdominal pain; R11.2 Nausea with vomiting, unspecified; F17.200 Nicotine dependence, unspecified, uncomplicated
CPT/HCPCS: 80053; 83690; 85025; 94760; 96361; 96374; 96375; 99283; J7030; A4216; J2405

== ENCOUNTER 2019-08-24 12:49 | Emergency (ER) | payer MEDICAID, SELFPAY ==
[2019-08-24 12:50] VITALS: BP 129/93; PULSE 62; RESP 16; TEMP 36.4; O2SAT 99; BMI 24.3
--- NOTE | 2019-08-24 13:10 | ED.VISSUMM ---
- ER Visit Summary Date of Service: 08/24/19 Chief Complaint: Abdominal pain History of Present Illness: The patient is a [address] Mendoza. He reports that he has lower abdominal pain that began today. It is continuous sharp, squeezing pain is 7-10 at worst and 4-10 currently. It is worsened by movement. Is relieved by nothing. He reports he is been nauseated for vomited 4-5 times. No blood in his emesis. He said tips of the diarrhea today. No blood in his stools or black tarry stools. No dysuria or frequency. Patient reports that his daughter has had a sore throat. He denies any exposure to vomiting and diarrhea. Has not been camping out of the country. No possible bad food exposure. Does not drink well water. No recent antibiotic use. Physical Examination: Vitals: Stable. Afebrile. General: Well-nourished and well-developed. Head: Normocephalic atraumatic. Neck: Supple, no lymphadenopathy. No JVD. Nontender. Cardiovascular: Regular rate and rhythm. No murmurs. Respiratory: No respiratory distress. Clear to auscultation bilaterally. Abdominal: Soft, mild tenderness to palpation of left lower quadrant, nondistended, normal bowel sounds. No guarding, rebound, or peritoneal signs. Back: Nontender. Extremities: Nontender, no edema. Skin: Normal color, no rash. Neurologic: Alert and oriented ?3. Cranial nerves II through XII are intact. Normal strength and sensation. Psych: Normal affect. Test Results: CBC shows segmented neutrophils of 89 lymphocytes of 8. Chem-7 shows a chloride of 109 glucose 110. Emergency Department Course and Treatment: Patient had an IV placed. He was given a liter of normal saline. He was given Zofran IV. He is resting comfortably. Had no vomiting or diarrhea while here. Treatment Plan: Patient is asking for referral to gastroenterology. I did review his prior CTs and at one point he had transverse colitis. Another CT shows diverticulitis. He will be discharged instructions to follow-up with the market development director soon as possible. He is given the names of Dr. Valderrama, Billie, and Jonathan for follow-up. In the meantime he will be placed on Zofran and Prilosec. Instructed to follow-up with his primary care physician in 3 to 5 days if not improving. Return to the emergency department for any worsening symptoms. Disposition: To home in improved and stable condition. Impression: 1. Abdominal pain, uncertain cause. 2. Vomiting/diarrhea. This note was generated with [employer] dictation software. It may contain incorrect words, spelling, and punctuation that were not noted in review of the chart prior to signing ED Disposition - Plan for ED Patient: Instructions: ED Vomiting and Diarrhea Nonspecific Adult Prescriptions: Omeprazole [Prilosec] 20 mg PO DAILY #30 capsule Ondansetron [Zofran Odt] 4 mg PO Q8H PRN PRN #10 tablet PRN Reason: Nausea Referrals: Misty Mendoza MD [Primary Care Provider] - 3-5 Days if not improving Rojas Valderrama MD [NON-STAFF] - As soon as possible Bernabe Gonzalez MD [STAFF PHYSICIAN] - As soon as possible Navin Castillo MD [CONSULTING PHYSICIAN] - As soon as possible
[2019-08-24] MEDS: Ondansetron 4 MG/2 ML Vial IV (13:17)
[2019-08-24] MEDS: 0.9% Normal Saline 1,000 ML 1000 ML IV (13:17)
[2019-08-24 13:29] LABS: Absolute Lymphocyte Count 0.73 X10^3/uL (0.83-4.51); Absolute Neutrophil Count 8.5 X10^3/uL (2.0-7.7); Basophil# 0.02 X10^3/uL; Basophil% 0.2 % (0-1); Eosinophil# 0.01 X10^3/uL; Eosinophils% 0.1 % (0-5); Hematocrit 44.1 % (40-54); Hemoglobin 15.5 g/dL (13.0-16.5); Lymphocyte # 0.73 X10^3/ul (4.0); Lymphocyte % 7.6 % (19-41); Mean Corp Hgb Conc 35.1 g/dL (32-36); Mean Corpuscular Hgb 31.8 pg (27.0-32.0); Mean Corpuscular Volume 90.6 fL (80-94); Mean Platelet Vol. 9.7 fl (6.2-12.0); Monocyte# 0.31 X10^3/uL; Monocyte% 3.2 % (0-10); NRBC Flagged by Analyzer 0 % (0-5); Neutrophil # 8.52 X10^3/uL (2.7-7.7); Neutrophil % 88.6 % (47-70); Platelet Count 167 K/mm3 (150-450); RBC Distribution Width CV 12.1 % (11.6-14.6); Red Blood Count 4.87 M/mm3 (4.6-6.2); White Blood Count 9.6 K/mm3 (4.4-11.0)
[2019-08-24 13:45] LABS: Anion Gap 7 (5-15); BUN 11 mg/dL (7-18); Calcium,Total 9.1 mg/dL (8.5-10.1); Chloride 109 mmol/L (98-107); Creatinine, Serum 0.92 mg/dL (0.70-1.30); EST Glomerular Filtration Rate 104 mL/min (>60); Est Glom Filt Rate - Afr Amer 126 mL/min (>60); Estimated Creatinine Clearance 119.54 ml/min; Glucose 110 mg/dL (74-106); Potassium 3.7 mmol/L (3.5-5.1); Sodium Level 144 mmol/L (136-145)
[2019-08-24 14:07] VITALS: BP 126/82; PULSE 67; RESP 15
== END 2019-08-24 14:08 | disposition home or self-care (01) ==
LOC: ED 13:35
PROVIDERS: Emergency Provider Emergency Medicine; PCP Internal Medicine
DX: R10.32 Left lower quadrant pain (principal); R11.2 Nausea with vomiting, unspecified; R19.7 Diarrhea, unspecified; Z72.0 Tobacco use
CPT/HCPCS: 80048; 85025; 96361; 96374; 99283; J7030; J7050; J2405

== ENCOUNTER 2019-09-10 15:04 | Emergency (ER) | payer MEDICAID, SELFPAY ==
[2019-09-10 15:05] VITALS: BP 118/79; PULSE 71; RESP 16; TEMP 36.1; O2SAT 100; BMI 25.1
--- NOTE | 2019-09-10 15:58 | ED.DCSUM_ITS ---
- ER Visit Summary Date of Service: 09/10/19 Chief Complaint: Right thumb laceration History of Present Illness: The patient is a 29 M who presents with a laceration to his right thumb that occurred today. Patient states he was cutting a watermelon with a brand-new knife and accidentally cut his right thumb. Patient states he became lightheaded and nauseated after he pulled the knife out of his thumb. Patient states his pain is throbbing. Patient denies any paresthesias or weakness. Patient states the bleeding has been persistent. Physical Examination: Vital signs are stable. Patient is afebrile. Patient is in no acute distress. Skin is warm and dry. There is a 4 mm full-thickness linear laceration on the radial aspect of the right thumb. There is minimal gapping of the wound margins. There is mild bleeding. There is full range of motion of the IP and MP joints. Sensation was intact light touch in all digits. Capillary refill is less than 2 seconds in all digits. Emergency Department Course and Treatment: Patient was offered an x-ray to see if it hit his bone. He states he does not have time to stay for the x-ray and wants to go home. Patient states his last tetanus was within 10 years. Patient was given a bulky dressing. Patient was instructed to ice and elevate the right thumb. Patient was instructed to follow-up with his primary care physician in 5 to 7 days. Patient understood and was agreeable with the plan. All questions were answered. Disposition: Discharge home Impression: Right thumb laceration This note was generated with [employer] dictation software. It may contain incorrect words, spelling, and punctuation that were not noted in review of the chart prior to signing ED Disposition - Plan for ED Patient: Disposition: Home or Assisted Living Diagnosis: Laceration of right thumb Instructions: ED Laceration Hand Referrals: Misty Mendoza MD [Primary Care Provider] - 5-7 Days
== END 2019-09-10 16:20 | disposition home or self-care (01) ==
PROVIDERS: Emergency Provider Emergency Medicine; PCP Internal Medicine
DX: S61.011A Laceration without foreign body of right thumb without damage to nail, initial encounter (principal); W26.0XXA Contact with knife, initial encounter
CPT/HCPCS: 99283

== ENCOUNTER 2019-10-12 06:15 | Emergency (ER) | payer MEDICAID, SELFPAY ==
[2019-10-12 06:17] VITALS: BP 136/106; PULSE 81; RESP 16; TEMP 36.7; O2SAT 100; BMI 25.5
--- NOTE | 2019-10-12 06:34 | ED.VIS.GEN ---
History of Present Illness Chief Complaint: Dental Informant: Patient Onset: Days Context: Gradual Onset Timing: Intermittent Current Severity: Moderate Maximum Severity: Severe Narrative: The patient is an otherwise healthy 29-year-old male who presents to the emergency department with left upper dental pain. Patient was in his normal state of health. He states over the past 2 days, he has had a gradual increase in pain near his left molars and seems like it tracks to the front of his face. He states he has had hot and cold sensitivity. He denies any trouble speaking or swallowing. He has not had a documented fever. He states that he did see a dentist a few months ago and had wisdom teeth extraction. He does have a follow-up coming up this week because of his pain, but he states he got significantly increased over the weekend. He has no history of immunosuppression. Prior similar symptoms: No Recent Illness/Hospitalization: No Past Medical History - Allergies and Home Meds Allergies/Adverse Reactions: Allergies clindamycin Allergy (Verified 10/12/19 06:22) Unknown gentamicin [Gentamicin] Allergy (Verified 10/12/19 06:22) Unknown Primary Care Physician: Misty Mendoza MD [Primary Care Provider] - Prior records reviewed: Yes Past Medical History: None Surgical History: no surgical history Smoking Status: Current every day smoker Review of Systems General: Denies: Chills, Fever, Sweats Eyes: Denies: Visual changes - bilaterally, Diplopia ENT: Denies: Rhinorrhea, Sore throat Cardiovascular: Denies: Chest pain, Palpitations Respiratory: Denies: Dyspnea, Cough, Dyspnea on exertion Gastrointestinal: Denies: Abdominal pain, Nausea, Vomiting, Diarrhea, Melena, Hematochezia Genitourinary: Denies: Dysuria, Hematuria, Frequency Musculoskeletal: Denies: Back pain, Extremity Pain Skin: Denies: Rash, Wounds Neurological: Denies: Headache, Weakness, Numbness Physical Exam Vital Signs/Narrative: Vital Signs Temp Pulse Resp BP Pulse Ox 10/12/19 06:17 98.0 F 81 16 136/106 H 100 Inital Vital Signs reviewed: Yes General: Well nourished, Well developed, No Acute Distress Head: Normocephalic, Atraumatic Eyes: Perrl, EOMI ENT: Moist mucous membranes, No rhinorrhea, - - Patient has mild erythema and tenderness to palpation over tooth #14 and 13. There is no focal abscess. Submental space is soft. No Colin angina. No trismus or stridor. Neck: Supple, Nontender Cardiovascular: Regular rate, Regular rhythm, No murmurs Respiratory: No distress, CTA bilaterally, Chest nontender Abdomen: Soft, Nontender, Nondistended, Normal bowel sounds Back: Nontender, Normal Inspection Extremities: Nontender, No edema Skin: Normal color, No rash Neurological: Alert, Oriented x3, Cranial nerves II-XII grossly intact, Normal Strength, Normal Sensation Psychological: Normal affect, Normal Mood Diagnostic/Tx/Re-eval - Medical Decision Making My suspicion is that the patient likely has periapical abscess. There is no facial edema. There is no evidence of significant abscess that would benefit from incision and drainage. He has no Colin angina. I am going to treat the patient with a short course of analgesics and antibiotics. He has dental follow-up in place and will keep this. He will be discharged home. Impression 1. Periapical dental abscess ED Disposition - Plan for ED Patient: Instructions: ED ABSCESS DENTAL Prescriptions: Amox/Clavulanate Tablet [Augmentin Tablet] 875 mg PO Q12H #20 tab Prescription Printed Hydrocodone Bitart/Apap 5-325 [[place] 5MG-325MG] 1 tab PO Q6H PRN PRN 3 Days #10 tab PRN Reason: Pain Prescription Printed Referrals: Misty Mendoza MD [Primary Care Provider] -
[2019-10-12] MEDS: Amox/Clavulanate 875 MG Tablet PO (06:49)
[2019-10-12] MEDS: HYDROcodone Bitartrate/Apap 5/325 Tablet PO (06:49)
[2019-10-12 06:54] VITALS: RESP 14
== END 2019-10-12 06:54 | disposition home or self-care (01) ==
LOC: ED 06:43
PROVIDERS: Emergency Provider Emergency Medicine; PCP Internal Medicine
DX: K04.7 Periapical abscess without sinus (principal); F17.200 Nicotine dependence, unspecified, uncomplicated
CPT/HCPCS: 99283

== ENCOUNTER 2020-02-05 09:06 | Emergency (ER) | payer MEDICAID, SELFPAY ==
[2020-02-05 09:07] VITALS: BP 139/95; PULSE 71; RESP 18; TEMP 36.6; O2SAT 100; BMI 23.3
--- NOTE | 2020-02-05 09:49 | ED.VIS.GI ---
History of Present Illness Chief Complaint: Nausea/Vomiting Informant: Patient - Abdominal Pain/Flank Pain Onset: Yesterday Context: Gradual Onset Timing: Continuous Location: Diffuse - Nausea/Vomiting/Emesis GI Symptom: Nausea, Vomiting Onset: Today Quality: Nonbilious. Negative for: Blood streaks, Coffee ground, Hematemesis - Diarrhea/Melena/Hematochezia GI Symptom: Diarrhea. Negative for: Melena, Hematochezia Onset: Yesterday Stool Quality: Negative for: Black, Maroon, [place] per rectum Narrative: Patient is a 29-year-old male with history of ADHD, IBS and chronic pain presenting with concern for dehydration and IBS flare. Patient states he is not been able hold any water down today is concerned he might be dehydrated need IV fluids. He states symptoms started yesterday. He has diffuse abdominal discomfort that he describes as a sick feeling. He has had vomiting and diarrhea. He denies any fever chills. Denies any difficulty breathing or chest pain. He does note he has had some chest wall discomfort for couple days but thinks it is from his muscles and does not want this to be evaluated further. Patient states he has had flareups similar to this in the past and is usually given Zofran and another medicine that helps him. Patient does state that he smokes marijuana daily. He is never been told that he has cyclic vomiting syndrome or cannabis hyperemesis syndrome. He has no other complaints at this time. Past Medical History - Allergies and Home Meds Allergies/Adverse Reactions: Allergies clindamycin Allergy (Verified 02/05/20 09:08) Unknown gentamicin [Gentamicin] Allergy (Verified 02/05/20 09:08) Unknown Primary Care Physician: Misty Mendoza MD [Primary Care Provider] - Past Medical History: - - ADHD, IBS, chronic pain Surgical History: noncontributory, - - Trachea surgery as an Smoking Status: Current every day smoker Alcohol: None Drugs: Marijuana Review of Systems General: Denies: Chills, Fever, Sweats Eyes: Denies: Visual changes - bilaterally, Diplopia ENT: Denies: Rhinorrhea, Sore throat Cardiovascular: Denies: Chest pain, Palpitations Respiratory: Denies: Dyspnea, Cough, Dyspnea on exertion Gastrointestinal: Reports: Vomiting, Diarrhea. Denies: Abdominal pain, Melena, Hematochezia Genitourinary: Denies: Dysuria, Hematuria, Frequency Musculoskeletal: Denies: Back pain, Extremity Pain Skin: Denies: Rash, Wounds Neurological: Denies: Headache, Weakness, Numbness Physical Exam Vital Signs/Narrative: Vital Signs Temp Pulse Resp BP Pulse Ox 02/05/20 09:07 98 F 71 18 139/95 H 100 Inital Vital Signs reviewed: Yes General: Well nourished, Well developed, No Acute Distress Head: Normocephalic, Atraumatic Eyes: Perrl, EOMI ENT: Moist mucous membranes, No rhinorrhea Neck: Supple, Nontender Cardiovascular: Regular rate, Regular rhythm, No murmurs Respiratory: No distress, CTA bilaterally, Chest nontender Abdomen: Soft, Nontender, Nondistended, Normal bowel sounds Back: Nontender, Normal Inspection Extremities: Nontender, No edema Skin: Normal color, No rash Neurological: Alert, Oriented x3, Cranial nerves II-XII grossly intact, Normal Strength, Normal Sensation Psychological: Normal affect, Normal Mood Diagnostic/Tx/Re-eval Laboratory Data 02/05/20 02/05/20 02/05/20 10:05 10:05 10:05 WBC 10.6 RBC 5.28 Hgb 16.7 H Hct 50.4 MCV 95.5 H MCH 31.6 MCHC 33.1 RDW Std Deviation 41.6 RDW Coeff of [place] 11.9 Plt Count 198 MPV 9.5 Immature Gran % (Auto) 0.300 Neut % (Auto) 84.3 H Lymph % (Auto) 10.4 L [place] % (Auto) 4.2 Eos % (Auto) 0.6 Baso % (Auto) 0.2 Absolute Neuts (auto) 8.9 H Absolute Lymphs (auto) 1.10 Nucleated RBC % 0 Sodium 141 Potassium 4.5 Chloride 107 Carbon Dioxide 33.0 H Anion Gap 1 L BUN 13 Creatinine 0.95 Estim Creat Clear Calc 119.53 Est GFR (MDRD) Af Amer 120 Est GFR (MDRD) Non-Af 99 BUN/Creatinine Ratio 13.6 Glucose 95 Calcium 9.4 Total Bilirubin 0.30 AST 20 ALT 47 Alkaline Phosphatase 70 Total Protein 7.4 Albumin 4.0 Globulin 3.4 Albumin/Globulin Ratio 1.2 Lipase 128 Urine Color Yellow Urine Clarity Clear Urine pH 8.0 Ur Specific [place] 1.010 Urine Protein Negative Urine Glucose (UA) Normal Urine Ketones Negative Urine Occult Blood Negative Urine Nitrite Negative Urine Bilirubin Negative Urine Urobilinogen Normal Ur Leukocyte Esterase Negative Urine RBC 0 SEEN Urine WBC 0 SEEN Ur Squamous Epith Cells 0 SEEN Urine Bacteria RARE Urine Mucus 0 SEEN - Medical Decision Making Evaluated for IBS flare. He is well-appearing and does not appear significantly dehydrated. He has normal vital signs. His abdomen is soft and nontender. Is not pain out of proportion. Patient does smoke marijuana daily and I question if he has a component of cannabis hyperemesis syndrome or cyclic vomiting syndrome. This is discussed with the patient and he states he is never been told this. Will be treated with IV fluids, Zofran and Haldol. Will check baseline labs. Patient is medicated and shortly after there he leaves the ED. He took out his own IV. Is not able to reevaluate the patient is not aware the patient left at that time. I did place a call to the patient's cell phone on record but no answer was obtained. Lab work was reviewed which was normal. Patient had commented to his nurse that he been told he needs to follow-up with a GI doctor. ED Disposition - Plan for ED Patient: Disposition: Home or Assisted Living Diagnosis: Eloped from emergency department, Nausea and vomiting, Marijuana abuse Referrals: Misty Mendoza MD [Primary Care Provider] -
[2020-02-05] MEDS: Haloperidol Lactate 5 MG/ML Vial 2 MG IV (10:07)
[2020-02-05] MEDS: Ondansetron 4 MG/2 ML Vial IV (10:07)
[2020-02-05] MEDS: 0.9% Normal Saline 1,000 ML 1000 ML IV (10:09)
[2020-02-05 10:22] LABS: Mucous, Urine 0 SEEN /hpf (<or=2+); Red Blood Cells-Urine 0 SEEN /hpf (0-5); Squamous Epithelial Cells - UA 0 SEEN /hpf (0-5); White Blood Cells 0 SEEN /hpf (0-5)
[2020-02-05 10:23] LABS: Absolute Neutrophil Count 8.9 X10^3/uL (2.0-7.7); Basophil# 0.02 X10^3/uL; Basophil% 0.2 % (0-1); Eosinophil# 0.06 X10^3/uL; Eosinophils% 0.6 % (0-5); Hematocrit 50.4 % (40-54); Hemoglobin 16.7 g/dL (13.0-16.5); Lymphocyte % 10.4 % (19-41); Mean Corp Hgb Conc 33.1 g/dL (32-36); Mean Corpuscular Hgb 31.6 pg (27.0-32.0); Mean Corpuscular Volume 95.5 fL (80-94); Mean Platelet Vol. 9.5 fl (6.2-12.0); Monocyte# 0.44 X10^3/uL; Monocyte% 4.2 % (0-10); NRBC Flagged by Analyzer 0 % (0-5); Neutrophil % 84.3 % (47-70); Platelet Count 198 K/mm3 (150-450); RBC Distribution Width CV 11.9 % (11.6-14.6); RBC Distribution Width SD 41.6 fl (35.1-43.9); Red Blood Count 5.28 M/mm3 (4.6-6.2); White Blood Count 10.6 K/mm3 (4.4-11.0)
--- NOTE | 2020-02-05 10:28 | ED.RN ---
[facility] NURSE CAME TO BACK TO INFORM THAT IT APPEARED THAT THE PATIENT HAD WALKED OFF UNIT. WENT BACK TO PT'S ROOM TO FIND HIS IV PULLED AND LEAKING ALL OVER THE FLOOR. ATTEMPTED TO FIND PT TO INFORM HIM THAT HE IS NOT ALLOWED TO DRIVE BECAUSE OF THE MEDICATIONS THAT HE WAS GIVEN. COULD NOT FIND PT. PT'S IV CANNULA WAS INTACT. ROOM WAS CLEANED.
[2020-02-05 10:30] LABS: Color, Urine Yellow (Yellow); Glucose, Dipstick Normal (Normal); Ketone-Dipstick Negative (Negative); Leukocyte Esterase-Dipstick Negative /ul (Negative); Nitrite-Dipstick Negative (Negative); Occult Blood-Urine Negative /ul (Negative); Protein-Dipstick Negative (Negative); Urine Bilirubin Dipstick Negative (Negative); Urine Clarity Clear (Clear); Urine Urobilinogen Normal (Normal)
[2020-02-05 10:38] LABS: ALB/GLOB Ratio 1.2 RATIO (0.9-2.4); AST(SGOT) 20 U/L (15-37); Alanine Aminotransfer ALT/SGPT 47 U/L (16-61); Alkaline Phosphatase 70 U/L (45-117); Anion Gap 1 (5-15); BUN 13 mg/dL (7-18); BUN/Creat Ratio 13.6 RATIO (10-20); Calcium,Total 9.4 mg/dL (8.5-10.1); Chloride 107 mmol/L (98-107); Creatinine, Serum 0.95 mg/dL (0.70-1.30); EST Glomerular Filtration Rate 99 mL/min (>60); Est Glom Filt Rate - Afr Amer 120 mL/min (>60); Estimated Creatinine Clearance 119.53 ml/min; Globulin 3.4 g/dL (2.2-4.2); Glucose 95 mg/dL (74-106); Lipase 128 U/L (73-393); Potassium 4.5 mmol/L (3.5-5.1); Protein, Total 7.4 g/dL (6.4-8.2); Sodium Level 141 mmol/L (136-145)
[2020-02-05 10:40] LABS: Bacteria RARE /hpf (None Seen)
== END 2020-02-05 10:31 | disposition home or self-care (01) ==
LOC: ED 10:12
PROVIDERS: Emergency Provider Emergency Medicine; PCP Internal Medicine
DX: R11.2 Nausea with vomiting, unspecified (principal); F12.10 Cannabis abuse, uncomplicated; F17.200 Nicotine dependence, unspecified, uncomplicated
CPT/HCPCS: 80053; 81001; 83690; 85025; 96361; 96374; 96375; 99282; J2405

== ENCOUNTER 2020-09-27 12:02 | Emergency (ER) | payer MEDICAID, SELFPAY ==
[2020-09-27 12:03] VITALS: BP 145/92; PULSE 93; RESP 18; TEMP 36.6; O2SAT 99; BMI 25.4
[2020-09-27 12:05] VITALS: BP 145/92; PULSE 93; RESP 18; TEMP 36.6; O2SAT 99
--- NOTE | 2020-09-27 12:39 | EDS_ITS ---
HPI HPI - GI History of Present Illness Chief Complaint: Nausea/Vomiting Informant: patient Abdominal Pain/Flank Pain Onset: Days (5) Context: Gradual Onset Timing: Continuous Quality: - (Pressure) Location: Diffuse Worsened by: Nothing Relieved by: - (Phenergan) Nausea/Vomiting/Emesis GI Symptom: Positive for Nausea and Vomiting Quality: Positive for Nonbilious Diarrhea/Melena/Hematochezia GI Symptom: Positive for Diarrhea Stool Quality: Positive for Watery Associated Symptoms Associated Symptoms: Negative for Dysuria and Hematuria Narrative Narrative: Patient presents with abdominal pain, nausea, and vomiting for the past 4 to 5 days. Patient states has been constant but waxing and waning. Patient describes as a pressure. Patient states it is diffuse across his abdomen. Patient states he had some Phenergan suppositories at home which has been helping. Patient states he is able to keep some liquids down. Patient states he is unable to keep any solid foods down. Patient denies any hematemesis or coffee-ground emesis. Patient states his emesis is just stomach contents. Patient mitts to multiple episodes of watery diarrhea. Patient denies any melena or hematochezia. Patient denies any urinary complaints. [facility] Medical History ADHD Head ache Heroin use Home Medications ibuprofen 600 mg PO Q8H PRN PRN 09/10/19 [History Last Taken Unknown] cyclobenzaprine 10 mg PO QHS PRN 02/05/20 [History Last Taken Unknown] oxycodone-acetaminophen 1 tab PO Q8H PRN 02/05/20 [History Last Taken Unknown] Allergy/AdvReac Type Severity Reaction Status Date / Time clindamycin Allergy Unknown Verified 09/27/20 12:05 gentamicin [Gentamicin] Allergy Unknown Verified 09/27/20 12:05 Family History (Updated 05/23/17 @ 11:44 by Cristela Grissom) Mother Anxiety Arthritis Asthma Depression (emotion) Hypertension Environmental allergies Suicide attempt Father Bowel disease Social History Smoking Status: Current every day smoker tobacco type: cigarettes ROS ROS ED Constitutional Constitutional ED: Denies chills or fever(s) Eyes Eyes: Denies blurry vision or change in vision ENT ENT ED: Denies rhinorrhea or sore throat Cardiovascular Cardiovascular: Denies chest pain or palpitations Respiratory/Chest Respiratory/Chest: Denies cough or dyspnea Gastrointestinal Gastrointestinal: Reports abdominal pain, diarrhea, nausea and vomiting Genitourinary Genitourinary ED: Denies dysuria or hematuria Musculoskeletal Musculoskeletal: Reports back pain; Denies neck pain Integumentary Denies abscess or rash Neurologic Neurologic: Denies headache(s) or weakness Allergic/Immunologic Allergic/Immunologic ED: Denies mouth swelling or urticaria EXAM Physical Exam Const Vital Signs: 09/27/20 12:03 09/27/20 12:05 09/27/20 14:04 Temperature 97.9 F 97.9 F Temperature Source Temporal Temporal Pulse Rate 93 93 Respiratory Rate 18 18 14 Blood Pressure 145/92 H 145/92 H Blood Pressure Mean 109 109 Pulse Ox 99 99 Oxygen Delivery Method Room Air Room Air Positive well nourished and well developed General Appearance ED: well developed HEENT Reports moist mucous membranes normocephalic and atraumatic Neck supple and no JVD Resp normal respiratory effort and clear to auscultation bilaterally Cardio regular rate, regular rhythm and no murmurs GI normal to inspection, nondistended, normoactive bowel sounds and non-distended Auscultation: normoactive bowel sounds Palpation: soft and tender epigastric, LLQ, RLQ, LUQ, RUQ, periumbilical and suprapubic; Negative for guarding or rebound tenderness present Extremity normal to inspection General Extremety ED: Negative for edema or tenderness General Extremity: Negative for edema Neuro oriented x3, CN's II-XII intact bilaterally and no sensory deficits noted Sensorium / Orientation: alert, oriented to person, oriented to place and oriented to time Motor Exam: strength 5/5 throughout Psych mental status grossly normal Skin no rashes or lesions noted MDM MDM MDM Narrative Medical decision making narrative: Patient was given IV fluids and Phenergan. CBC showed a hemoglobin of 16.8. Comprehensive metabolic profile was essentially within normal limits. Lipase was normal. Patient states he was still feeling dehydrated on reevaluation. Patient was ordered another liter of normal saline. Patient change his mind and no longer wanted the second liter of IV fluids. Patient was instructed to use his Phenergan suppositories as needed. Patient was instructed to follow-up with his primary care physician in 3 to 5 days. Patient understood and was agreeable with the plan. All questions were answered. Lab Data Attestation: I reviewed the patient's lab results. Labs: Laboratory Results - last 24 hr 09/27/20 09/27/20 12:54 12:54 WBC 9.1 RBC 5.47 Hgb 16.8 H Hct 47.1 MCV 86.1 MCH 30.7 MCHC 35.7 RDW Std Deviation 37.3 RDW Coeff of [place] 11.8 Plt Count 242 MPV 9.0 Immature Gran % (Auto) 0.300 Neut % (Auto) 71.5 H Lymph % (Auto) 19.2 [place] % (Auto) 8.4 Eos % (Auto) 0.4 Baso % (Auto) 0.2 Absolute Neuts (auto) 6.5 Absolute Lymphs (auto) 1.75 Nucleated RBC % 0 Sodium 141 Potassium 3.9 Chloride 103 Carbon Dioxide 34.0 H Anion Gap 4 L BUN 11 Creatinine 1.00 Estim Creat Clear Calc 109.00 Est GFR (MDRD) Af Amer 113 Est GFR (MDRD) Non-Af 94 BUN/Creatinine Ratio 11.0 Glucose 94 Calcium 9.4 Total Bilirubin 0.40 AST 4 L ALT 16 Alkaline Phosphatase 74 Total Protein 7.1 Albumin 3.9 Globulin 3.2 Albumin/Globulin Ratio 1.2 Lipase 258 Discharge Plan Triage Chief Complaint: Nausea/Vomiting ED Provider: Yan Ch Dx/Rx/DC Orders Clinical Impression: Nausea vomiting and diarrhea, History of irritable bowel syndrome Instructions: ED Irritable Bowel Syndrome, ED Vomiting and Diarrhea ... Prescriptions: No Action ibuprofen 600 MG tablet 600 mg PO Q8H PRN PRN (Reason: Pain Or Fever) RF: 0 cyclobenzaprine 10 MG tablet 10 mg PO QHS PRN (Reason: NECK PAIN) RF: 0 oxycodone-acetaminophen 1 EACH tablet 1 tab PO Q8H PRN (Reason: Pain Score 1-10) RF: 0 Primary Care Provider: Misty Mendoza Referrals: Misty Mendoza MD [Primary Care Provider] - 3-5 Days Disposition Disposition: Home, self care Discharge Date/Time: 09/27/20 15:01
[2020-09-27] MEDS: proMETHazine 25 MG/ML Syringe 6.25 MG IM (12:59)
[2020-09-27] MEDS: 0.9% Normal Saline 1,000 ML 1000 ML IV (12:59)
[2020-09-27 13:05] LABS: Absolute Lymphocyte Count 1.75 X10^3/uL (0.83-4.51); Absolute Neutrophil Count 6.5 X10^3/uL (2.0-7.7); Basophil# 0.02 X10^3/uL; Basophil% 0.2 % (0-1); Eosinophil# 0.04 X10^3/uL; Eosinophils% 0.4 % (0-5); Hematocrit 47.1 % (40-54); Hemoglobin 16.8 g/dL (13.0-16.5); Lymphocyte # 1.75 X10^3/ul (0.83-4.51); Lymphocyte % 19.2 % (19-41); Mean Corp Hgb Conc 35.7 g/dL (32-36); Mean Corpuscular Hgb 30.7 pg (27.0-32.0); Mean Corpuscular Volume 86.1 fL (80-94); Monocyte# 0.76 X10^3/uL; Monocyte% 8.4 % (0-10); NRBC Flagged by Analyzer 0 % (0-5); Neutrophil % 71.5 % (47-70); Platelet Count 242 K/mm3 (150-450); RBC Distribution Width CV 11.8 % (11.6-14.6); RBC Distribution Width SD 37.3 fl (35.1-43.9); Red Blood Count 5.47 M/mm3 (4.6-6.2); White Blood Count 9.1 K/mm3 (4.4-11.0)
[2020-09-27 13:18] LABS: ALB/GLOB Ratio 1.2 RATIO (0.9-2.4); AST(SGOT) 4 U/L (15-37); Alanine Aminotransfer ALT/SGPT 16 U/L (16-61); Albumin, Serum 3.9 g/dL (3.2-5.0); Alkaline Phosphatase 74 U/L (45-117); Anion Gap 4 (5-15); BUN 11 mg/dL (7-18); Calcium,Total 9.4 mg/dL (8.5-10.1); Chloride 103 mmol/L (98-107); EST Glomerular Filtration Rate 94 mL/min (>60); Est Glom Filt Rate - Afr Amer 113 mL/min (>60); Globulin 3.2 g/dL (2.2-4.2); Glucose 94 mg/dL (74-106); Lipase 258 U/L (73-393); Potassium 3.9 mmol/L (3.5-5.1); Protein, Total 7.1 g/dL (6.4-8.2); Sodium Level 141 mmol/L (136-145)
[2020-09-27 14:04] VITALS: RESP 14
== END 2020-09-27 15:01 | disposition home or self-care (01) ==
PROVIDERS: Emergency Provider Emergency Medicine; PCP Internal Medicine
DX: R11.2 Nausea with vomiting, unspecified (principal); K58.0 Irritable bowel syndrome with diarrhea; F17.210 Nicotine dependence, cigarettes, uncomplicated
CPT/HCPCS: 80053; 83690; 85025; 96360; 96361; 96372; 99283; J7030